=== PATIENT | male | born 1990 | race African-American/Black ===

== ENCOUNTER 2021-01-11 09:55 | Emergency (ER) | payer BC, OTHER ==
[~2021-01-11] VITALS: Ht 172.7 cm; Wt 65.5 kg
[~2021-01-11 09:55] MED LIST: NAPR-514 PO
[2021-01-11] MEDS ORDERED: ONDANSETRON ODT 4 MG TAB.RAPDIS. PO ONE (10:15)
[2021-01-11] MEDS ORDERED: LIDO:MAALOX 1:1 20 ML SINGLE DOSE. SWSW ONE (10:30)
[2021-01-11 11:03] VITALS: BP 101/58
[2021-01-11] MEDS ORDERED: FAMO20TA5 PO (11:04)
--- NOTE | 2021-01-11 11:05 | PHYS DOC ---
Past Medical History Past Medical History: No Pertinent History (NANCY BEAR APRN) Past Surgical History: No Surgical History (NANCY BEAR APRN) Smoking Status: Current Every Day Smoker Additional Information: VAPES Alcohol Use: None Drug Use: None (NANCY BEAR APRN) General Adult EDM: Chief Complaint: ABDOMINAL PAIN HPI: HPI: Patient is a 30-year-old male presents emergency department complaining of epigastric discomfort with nausea for the past week. Patient reports he had "a stomach bug "2 weeks ago that lasted for about a week and ever since then has had nausea without vomiting, denies abdominal pain, denies constipation or diarrhea, denies recent fever or chills, denies shortness of breath or chest pains. Patient denies other physical complaints or physical concerns. Patient denies taking [id number] medications or prescription medications for his discomfort. (NANCY BEAR APRN) Review of Systems: Review of Systems: 14 body systems of review of systems have been reviewed. See HPI for pertinent positives and negative responses, otherwise all other systems are negative, nonpertinent or noncontributory. Constitutional: Negative except as outlined in HPI above. Skin: Negative except as outlined in HPI above. Eyes: Negative except as outlined in HPI above. HENT: Negative except as outlined in HPI above. Respiratory: Negative except as outlined in HPI above. Cardiovascular: Negative except as outlined in HPI above. GI: Negative except as outlined in HPI above. : Negative except as outlined in HPI above. Musculoskeletal: Negative except as outlined in HPI above. Integument: Negative except as outlined in HPI above. Neurologic: Negative except as outlined in HPI above. Endocrine: Negative except as outlined in HPI above. Lymphatic: Negative except as outlined in HPI above. Psychiatric: Negative except as outlined in HPI above. (NANCY BEAR APRN) Heart Score: C/O Chest Pain: No Risk Factors: Risk Factors: DM, Current or recent (<one month) smoker, HTN, HLP, family history of CAD, obesity. Risk Scores: Score 0 - 3: 2.5% MACE over next 6 weeks - Discharge Home Score 4 - 6: 20.3% MACE over next 6 weeks - Admit for Clinical Observation Score 7 - 10: 72.7% MACE over next 6 weeks - Early Invasive Strategies (NANCY BEAR APRN) Current Medications: Current Medications Medications (Trade) Dose Ordered Sig/[place] Start Time Stop Time Status Last Admin Dose Admin Multi-Ingredient Mouthwash/Gargle (Gi Cocktail) 20 ml 1X ONCE 01/11/21 10:30 01/11/21 10:31 DC 01/11/21 10:49 20 ML Ondansetron HCl (Zofran Odt) 4 mg 1X ONCE 01/11/21 10:15 01/11/21 10:16 DC 01/11/21 10:18 4 MG (NANCY BEAR APRN) Allergies: Allergies: Allergies Coded Allergies Type Severity Reaction Last Updated Verified No Known Drug Allergies 10/17/14 No (NANCY BEAR APRN) Physical Exam: PE: Constitutional: Well developed, well nourished, no acute distress, non-toxic appearance. 30-year-old male in no apparent distress. HENT: Normocephalic, atraumatic. Eyes: Conjunctiva normal, no discharge. Neck: Normal range of motion, no stridor. Cardiovascular: No cyanosis appreciated, distal cap refill less than 2 seconds. Lungs & Thorax: Patient is in no respiratory distress, no audible adventitious lung sounds appreciated. Abdomen: Nontender, no abnormalities noted. Normal bowel sounds all 4 quadrants. No tenderness to palpation, no skin discoloration appreciated, no masses appreciated, abdomen flat, soft. Skin: Warm, dry, no erythema, no rash. Back: No tenderness, no deformities. Extremities: No tenderness, no cyanosis, no clubbing, ROM intact, no edema. Neurologic: Alert and oriented X 3, normal motor function, normal sensory func tion, no focal deficits noted. Psychologic: Affect normal, judgement normal, mood normal. (NANCY BEAR APRN) Current Patient Data: Vital Signs: Vital Signs Date Time Temp Pulse Resp B/P (MAP) Pulse Ox O2 Delivery O2 Flow Rate FiO2 01/11/21 09:56 98.7 73 16 109/62 (78) 100 Room Air 98.7 (NANCY BEAR APRN) EKG: EKG: [] (NANCY BEAR APRN) Radiology/Procedures: Radiology/Procedures: [] (NANCY BEAR APRN) Course & Med Decision Making: Course & Med Decision Making Pertinent Labs and Imaging studies reviewed. (See chart for details) 22-year-old male, vital signs reviewed, resents emerged from concerning nausea with stomach discomfort. Physical examination consistent with dyspepsia, will give sublingual Zofran for nausea, after period of time will give GI cocktail and reevaluate patient. Approximately 30 minutes after GI cocktail given, reevaluation of patient, patient in no apparent distress, reports all symptoms have resolved. Discussed with patient this is most likely indigestion, will prescribe Pepcid 20 mg nightly, strict follow-up with primary care soon, patient reports not having primary care physician, will give clinic and primary care resources attached to discharge instructions. Patient is in no apparent distress and hemodynamically stable, gave verbal understanding of and is amenable to ED discharge planning. Discussed with the patient all findings and diagnostic testing as well as the need to follow-up with their primary care provider for further evaluation and treatment or return to the ED if any new or worsening symptoms. Strict return precautions were also discussed at length, the patient voiced understanding and agreement with the discharge planning. The patient was nontoxic in appearance, in no apparent distress, and hemodynamically stable at the time of disposition. (NANCY BEAR APRN) Course & Med Decision Making I have participated in the care of this patient and I have reviewed and agree with all pertinent clinical information above including history, exam, and recommendations. Jalen Maya DO (JALEN MAYA DO) Ricardo Disclaimer: Ricardo Disclaimer: This electronic medical record was generated, in whole or in part, using a voice recognition dictation system. (NANCY BEAR APRN) Departure Departure Impression: Primary Impression: Dyspepsia Disposition: 01 HOME / SELF CARE / HOMELESS Condition: GOOD Referrals: CHELSY PINTO MD (PCP) Patient Instructions: Indigestion Additional Instructions: You were seen in the emergency department today for upper abdominal discomfort with nausea. You were given a antinausea medication which seemed to help you were also given a GI cocktail for your abdominal discomfort which relieved all of your symptoms. Your symptoms may have been related to the stomach bug you had earlier in the week, as we discussed I am starting you on Pepcid medication to take each night before you go to bed, please take as directed. Please follow-up with your primary care physician soon for ongoing symptoms. You had indicated you do not have a primary care physician, I am attaching a list of area clinics and family care physicians to this document, please choose a primary care provider to establish primary health care. Thank you for visiting our Emergency Department. It was a pleasure taking care of you today in the emergency department and we appreciate you trusting us with your care. If any additional problems come up don't hesitate to return to visit us. Please follow up with your primary care provider so they can plan additional care if needed and know about the problem that you had. If symptoms worsen come back to the Emergency Department. Any concerning symptoms that start such as chest pain, shortness of air, weakness or numbness on one side of the body, running high fevers or any other concerning symptoms return to the ER. EMERGENCY DEPARTMENT GENERAL DISCHARGE INSTRUCTIONS Thank you for coming to [facility] Emergency Department (ED) today and trusting us with you care. We trust that you had a positive experience in our Emergency Department. If you wish to speak to the department management, you may call the Director at [phone]. YOUR FOLLOW UP INSTRUCTIONS ARE FOLLOWS: 1. Do you have a private Doctor? If you do not have a private doctor, please ask for a resource list of physicians or clinics that may be able to assist you with follow up care. 2. The Emergency Physicain has interpreted your x-rays. The X-Ray specialist will also review them. If there is a change in the findings, you will be notified in 48 hours when at all possible. 3. A lab test or culture has been done, your results will be reviewed and you will be notified if you need a change in treatment. ADDITIONAL INSTRUCTIONS AND INFORMATION: 1. Your care today has been supervised by a physician who is specially trained in emergency care. Many problems require more than one evaluation for a complete diagnosis and treatment. We recommend that you schedule your follow up appointment as recommended to ensure complete treatment of you illness or injury. If you are unable to obtain follow up care and continue to have a problem, or if your condition worsens, we recommend that you return to the ED. 2. We are not able to safely determine your condition over the phone nor are we able to give sound medical advice over the phone. For these safety reasons, if you call for medical advice we will ask you to come to the ED for further evaluation. 3. If you have any questions regarding these discharge instructions please call the ED at [phone]. SAFETY INFORMATION: In the interest of safety, wellness, and injury prevention; we encourage you to wear your sealbelt, if you smoke; quite smoking, and we encourage family to use a protective helmet for bicycling and other sporting events that present an increased risk for head injury. IF YOUR SYMPTOMS WORSEN OR NEW SYMPTOMS DEVELOP, OR YOU HAVE CONCERNS ABOUT YOUR CONDITION; OR IF YOUR CONDITION WORSENS WHILE YOU ARE WAITING FOR YOUR FOLLOW UP APPOINTMENT; EITHER CONTACT YOUR PRIMARY CARE DOCTOR, THE PHYSICIAN WHOSE NAME AND NUMBER YOU WERE GIVEN, OR RETURN TO THE ED IMMEDIATELY. Scripts Famotidine (FAMOTIDINE) 20 Mg Tablet 20 MG PO HS for 30 Days, #30 TAB 0 Refills Prov: NANCY BEAR APRN 01/11/21 NANCY BEAR APRN Jan 11, 2021 11:05 JALEN MAYA DO Jan 11, 2021 15:24
== END 2021-01-11 11:24 | disposition home or self-care (01) ==
LOC: ER 09:55
DX: R10.13 Epigastric pain (principal); R11.0 Nausea; F17.200 Nicotine dependence, unspecified, uncomplicated
CPT/HCPCS: 99283

== ENCOUNTER 2021-02-20 13:29 | Emergency (ER) | payer BC ==
[~2021-02-20] VITALS: Ht 172.7 cm; Wt 65.0 kg
[~2021-02-20 13:29] MED LIST changes: +FAMO20TA5 PO
--- NOTE | 2021-02-20 14:50 | ED.ADGEN ---
Past Medical History Past Medical History: No Pertinent History Past Surgical History: No Surgical History Smoking Status: Never Smoker Alcohol Use: None Drug Use: None General Adult EDM: Chief Complaint: HEADACHE HPI: HPI: Patient is a 30-year-old male who arrives ambulatory to the emergency department complaining of a throbbing headache in addition to a sore throat as well as nausea. Patient states he is been dealing with the symptoms for roughly a day and a half. Patient also states he has had a dry cough during this time as well as some chest congestion. Patient states despite his symptoms he denies any history of known fevers or shortness of air. He further is unaware of any sick contacts and states he does not routinely have headaches. Furthermore he denies any neck involvement or neurological disturbance otherwise. Moreover he denies any chest pain or abdominal pain. He is awake, alert and nontoxic-appearing Review of Systems: Review of Systems: Constitutional: Denies fever or chills. [] Eyes: Denies change in visual acuity. [] HENT: Reports nasal congestion and sore throat. [] Respiratory: Reports cough. Denies shortness of breath. [] Cardiovascular: Denies chest pain or edema. [] GI: Denies abdominal pain, nausea, vomiting, bloody stools or diarrhea. [] : Denies dysuria. [] Musculoskeletal: Denies back pain or joint pain. [] Integument: Denies rash. [] Neurologic: Reports headache. Denies focal weakness or sensory changes. [] Endocrine: Denies polyuria or polydipsia. [] Lymphatic: Denies swollen glands. [] Psychiatric: Denies depression or anxiety. [] Allergies: Allergies: Allergies Coded Allergies Type Severity Reaction Last Updated Verified No Known Drug Allergies 02/20/21 No Physical Exam: PE: Constitutional: Well developed, well nourished, no acute distress, non-toxic appearance. [] HENT: Normocephalic, atraumatic, bilateral external ears normal, oropharynx moist, no oral exudates, nose normal. [] Eyes: PERRLA, EOMI, conjunctiva normal, no discharge. [] Neck: Normal range of motion, no tenderness, supple, no stridor. [] Cardiovascular:Heart rate regular rhythm, no murmur [] Lungs & Thorax: Bilateral breath sounds clear to auscultation [] Abdomen: Bowel sounds normal, soft, no tenderness, no masses, no pulsatile masses. [] Skin: Warm, dry, no erythema, no rash. [] Back: No tenderness, no CVA tenderness. [] Extremities: No tenderness, no cyanosis, no clubbing, ROM intact, no edema. [] Neurologic: Alert and oriented X 3, normal motor function, normal sensory function, no focal deficits noted. [] Psychologic: Affect normal, judgement normal, mood normal. [] Current Patient Data: Labs: Laboratory Tests Test 02/20/21 15:05 Influenza Type A Antigen Negative (NEGATIVE) Influenza Type B Antigen Negative (NEGATIVE) SARS-CoV-2 Antigen (Rapid) Negative (NEGATIVE) Vital Signs: Vital Signs Date Time Temp Pulse Resp B/P (MAP) Pulse Ox O2 Delivery O2 Flow Rate FiO2 02/20/21 14:37 98.3 65 14 110/63 (79) 99 Room Air 98.3 EKG: EKG: [] Heart Score: C/O Chest Pain: No Risk Factors: Risk Factors: DM, Current or recent (<one month) smoker, HTN, HLP, family history of CAD, obesity. Risk Scores: Score 0 - 3: 2.5% MACE over next 6 weeks - Discharge Home Score 4 - 6: 20.3% MACE over next 6 weeks - Admit for Clinical Observation Score 7 - 10: 72.7% MACE over next 6 weeks - Early Invasive Strategies Radiology/Procedures: Radiology/Procedures: [] Course & Med Decision Making: Course & Med Decision Making Pertinent Labs and Imaging studies reviewed. (See chart for details) [] Dragon Disclaimer: Ricardo Disclaimer: This electronic medical record was generated, in whole or in part, using a voice recognition dictation system. Departure Departure Impression: Primary Impression: Viral syndrome Additional Impression: Person under investigation for COVID-19 Disposition: HOME / SELF CARE / HOMELESS Condition: STABLE Referrals: CHELSY PINTO MD (PCP) Patient Instructions: Viral Syndrome Additional Instructions: Patient is to remain quarantined until his COVID-19 PCR is returned. Should you develop any shortness of air or chest pain, advised to return to the emergency department. Scripts Cyclobenzaprine Hcl (CYCLOBENZAPRINE HCL) 10 Mg Tablet 1 TAB PO TID for 5 Days, #15 TAB Prov: MIRI CARDENAS DO 02/20/21 Prednisone (PREDNISONE) 50 Mg Tablet 1 TAB PO DAILY for 5 Days, #5 TAB Prov: MIRI CARDENAS DO 02/20/21 Albuterol Sulfate (PROAIR HFA INHALER) 8.5 Gm Hfa.aer.ad 2 PUFF IH PRN Q4-6HRS PRN for wheezing for 21 Days, #1 INHALER 0 Refills Prov: MIRI CARDENAS DO 02/20/21 Problem Qualifiers MIRI CARDENAS DO Feb 20, 2021 14:50
[2021-02-20 15:40] LABS: INFLUENZA A PATIENT NEGATIVE (NEGATIVE); INFLUENZA B PATIENT NEGATIVE (NEGATIVE)
[2021-02-20] MEDS ORDERED: PRED50TA PO (15:50)
[2021-02-20] MEDS ORDERED: ALBU2.5V8 IH (15:50)
[2021-02-20] MEDS ORDERED: CYCL10TA19 PO (15:50)
[2021-02-20 16:15] VITALS: BP 108/58
--- NOTE | 2021-02-21 15:33 | NUR ---
IP: Attempted to contact pt concerning covid results. Phone provided is not in service.
== END 2021-02-20 15:58 | disposition home or self-care (01) ==
LOC: ER 13:29
DX: B34.9 Viral infection, unspecified (principal); Z20.822 Contact with and (suspected) exposure to COVID-19
CPT/HCPCS: 87070; 87426; 87804; 87880; 99283; U0003; U0005